=== PATIENT | female | born 1940 | race Caucasian/White ===

== ENCOUNTER 2016-10-16 12:08 | Emergency (ER) | payer MEDICARE ==
[~2016-10-16] VITALS: Ht 162.6 cm; Wt 78.0 kg
[2016-10-16 12:10] VITALS: BP 200/82; PULSE 71; RESP 20; TEMP 97.7; O2SAT 98
--- NOTE | 2016-10-16 12:19 | PD ---
Physical Exam Date Seen by Provider: October 16, 2016 Time Seen by Provider: 12:17 Narrative 76 year old female presents to the emergency department for evaluation of right hand pain after a trip and fall that occurred this morning. She states she did hit her head, but no LOC. Patient is ambulatory in triage. Vital signs reviewed. Patient awaiting bed placement. Data Data Last Documented VS Vital Signs Date Time Temp Pulse Resp B/P Pulse Ox O2 Delivery O2 Flow Rate FiO2 10/16/16 12:10 97.7 71 20 200/82 98 MDM Supervised Visit with BRANDT: Adilene Fowler October 16, 2016 12:19
--- NOTE | 2016-10-16 12:54 | PD ---
HPI Chief Complaint: Injury Time Seen by Provider: 12:47 Travel History International Travel<30 days: No Contact w/Intl Traveler<30days: No Traveled to known affect area: No History of Present Illness HPI The patient was seen and examined in the presence of the nurse. This patient complains of right wrist and hand pain. This morning she tripped over a curb and caught herself on her right outstretched wrist. Has bruising and pain there. Worse with movement. PFSH Past Medical History Cardiovascular Problems: Yes (htn) Social History Alcohol Use: No Tobacco Use: No Substance Use: No Allergies-Medications (Allergen,Severity, Reaction): Coded Allergies: Morphine (Verified Allergy, Intermediate, red, 10/16/16) Vancomycin (Verified Allergy, Unknown, 10/16/16) Reported Meds & Prescriptions Reported Meds & Active Scripts Active Reported Losartan (Losartan Potassium) 25 Mg Tab 12.5 Mg PO DAILY Pravastatin 40 Mg Tab 40 Mg PO HS Review of Systems General / Constitutional: No: Fever HENT: No: Headaches Cardiovascular: No: Chest Pain or Discomfort Respiratory: No: Cough Physical Exam Narrative Psych: Normal mood and affect. Normal insight and judgment. SKIN: Focused skin assessment reveals no rash or ulcers. Skin is warm and dry. Palpation shows no induration or nodules. Right wrist: Tenderness in the lateral aspect of the wrist as well as the fifth metacarpal area but no open wound. Neurovascularly intact Data Data Last Documented VS Vital Signs Date Time Temp Pulse Resp B/P Pulse Ox O2 Delivery O2 Flow Rate FiO2 10/16/16 12:10 97.7 71 20 200/82 98 Orders Wrist, Complete ([id number]) (10/16/16 ) [facility] Medical Decision Making Medical Screen Exam Complete: Yes Emergency Medical Condition: Yes Medical Record Reviewed: Yes Differential Diagnosis Wrist fracture, dislocation, contusion Narrative Course I have reviewed the patient's electronic medical record. I reviewed her right wrist x-rays which show a fracture at the base of the right fifth metacarpal, questionable hairline fracture at the base the right fourth metacarpal I placed her in a ulnar gutter splint She will ice She declines pain medicine Follow up with hand physician Diagnosis Primary Impression: Closed right hand fracture Qualified Code: S62.91XA - Closed right hand fracture, initial encounter Additional Instructions: Wear splint Follow-up with hand physician Apply ice and elevate Med/Other Pt SpecificInfo: Other Disposition: 01 DISCHARGE HOME Condition: Stable Genaro Miller MD October 16, 2016 12:54
[2016-10-16] MEDS ORDERED: BYST2.5T2 PO (12:55)
[2016-10-16] MEDS ORDERED: PRAV40TA2 PO (12:55)
[2016-10-16] MEDS ORDERED: LOSA25TA PO (12:55)
--- NOTE | 2016-10-16 13:13 | RADRPT ---
EXAM DATE/TIME: 10/16/2016 13:11 [place] COMPARISON: No previous studies available for comparison. INDICATIONS : Right medial hand and wrist pain today. Patient fell. MEDICAL HISTORY : None. SURGICAL HISTORY : None. ENCOUNTER: Initial ACUITY: 1 day PAIN SCORE: 6/10 LOCATION: Right medial wrist. FINDINGS: Three view examination of the right wrist demonstrates soft tissue swelling. There appears to be a no ndisplaced fracture the base of the fifth metacarpal. Questionable fracture base of fourth metacarpal . Mild scattered degenerative changes. CONCLUSION: Fracture base of fifth metacarpal and questionable fracture base of fourth metacarpal. Gio Espinal MD on October 16, 2016 at 13:06 Board Certified Radiologist. This report was verified electronically.
[2016-11-07] MEDS ORDERED: ASPI81CH CHEW (11:05)
== END 2016-10-16 14:12 | disposition home or self-care (01) ==
LOC: NEPD 12:08
DX: S62.91XA Unspecified fracture of right hand, initial encounter for closed fracture (principal); W10.1XXA Fall (on)(from) sidewalk curb, initial encounter
CPT/HCPCS: 29125; 73110